=== PATIENT | male | born 1980 | race Caucasian/White ===

== ENCOUNTER 2022-05-19 11:35 | Emergency (ER) | payer OTHER ==
[2022-05-19 13:42] LABS: Glucose,Whole Blood 103 mg/dL (70-110)
[2022-05-19 13:50] VITALS: RESP 18
[2022-05-19 14:27] LABS: Basophils % (A) 1 %; Eosinophils # (A) 0.1 k/uL (0-0.7); Eosinophils % (A) 2 %; HCT 38.4 % (39.0-53.0); HGB 13.3 gm/dL (13.0-17.5); Lymphocytes # (A) 1.1 k/uL (1.0-4.8); Lymphocytes % (A) 18 %; MCH 30.9 pg (25.0-35.0); MCHC 34.7 g/dL (31.0-37.0); MCV 89.2 fL (80.0-100.0); Mean Platelet Volume 9.7; Monocytes # (A) 0.5 k/uL (0-1.0); Monocytes % (A) 9 %; Neutrophils # (A) 4.2 k/uL (1.3-7.7); Neutrophils % (A) 68 %; Platelet Count 111 k/uL (150-450); RDW 13.6 % (11.5-15.5); WBC 6.1 k/uL (3.8-10.6)
--- NOTE | 2022-05-19 14:35 | XR ---
EXAMINATION TYPE: XR chest 2V DATE OF EXAM: 05/19/2022 COMPARISON: INDICATION: TECHNIQUE: Frontal and lateral views of the chest are obtained. FINDINGS: The heart size is normal. The pulmonary vasculature is normal. The lungs are clear. Some hyperinflation flattening the diaphragms could suggest underlying COPD. Foreign body of the kidneys in the midline. IMPRESSION: 1. No acute pulmonary process. 2. COPD
[2022-05-19 14:39] LABS: ALT 47 U/L (4-49); AST 68 U/L (17-59); African American GFR (CKD) >90 (>60 ml/min/1.73 sqM); Alkaline Phosphatase 110 U/L (38-126); Anion Gap 7 mmol/L; Blood Urea Nitrogen 17 mg/dL (9-20); Calcium 9.1 mg/dL (8.4-10.2); Carbon Dioxide 28 mmol/L (22-30); Chloride 106 mmol/L (98-107); Glucose 82 mg/dL (74-99); Non-African American GFR(CKD) >90 (>60 ml/min/1.73 sqM); Potassium 4.1 mmol/L (3.5-5.1); Sodium 141 mmol/L (137-145); Total Bilirubin 0.8 mg/dL (0.2-1.3); Total Protein 7.1 g/dL (6.3-8.2)
--- NOTE | 2022-05-19 14:39 | ED ---
SOB HPI - General Chief Complaint: Shortness of Breath Stated Complaint: SOB Time Seen by Provider: 05/19/22 13:38 Source: patient, RN notes reviewed Mode of arrival: ambulatory Limitations: no limitations - History of Present Illness Initial Comments: 41-year-old male presents with complaints of 4 days of exertional dyspnea and orthopnea he states he feels like there is some pressure on the right side of his lung. He does have a history of alcoholism history of liver disease history of chronic peripheral edema he denies any fevers chills sweats perhaps a slight cough no phlegm production he denies any overt chest pain at this time. He does state he was diagnosed with lymphadenopathy in the past. This was in his chest area. He does admit to smoking. He does use an inhaler when necessary. No other current complaints or modifying factors MD Complaint: shortness of breath - Related Data Home Medications Medication Instructions Recorded Confirmed Acetaminophen [Tylenol 8 Hour] 650 mg PO Q4H PRN 05/19/22 05/19/22 Albuterol Nebulized [Ventolin 2.5 mg INHALATION RT-Q4H PRN 05/19/22 05/19/22 Nebulized] Albuterol Sulfate [Albuterol 1 - 2 puff INHALATION RT-Q4H PRN 05/19/22 05/19/22 Sulfate Hfa] Amoxic-Pot Clav 875-125Mg 1 tab PO BID 05/19/22 05/19/22 [Augmentin 875-125] Calcium Carb/Mag Ox/Zinc Sulf 1 tab PO TID PRN 05/19/22 05/19/22 [Atm-Clu-Zacp 334-134-5 mg Tab] Chlorpheniramine Maleate 4 mg PO Q4H PRN 05/19/22 05/19/22 [Chlor-Trimeton] Docusate [Colace] 100 mg PO BID PRN 05/19/22 05/19/22 Doxycycline [Vibramycin] 100 mg PO BID 05/19/22 05/19/22 Furosemide [Lasix] 40 mg PO BID 05/19/22 05/19/22 Hyoscyamine Sulfate [Levsin] 0.125 mg PO QID PRN 05/19/22 05/19/22 Ibuprofen [Motrin Ib] 600 mg PO Q6H PRN 05/19/22 05/19/22 Insulin Glargine [Lantus Vial] 100 unit SQ DAILY 05/19/22 05/19/22 Insulin Regular, Human [Novolin R] See Protocol SQ ACHS 05/19/22 05/19/22 Lisinopril-Hctz 20-25 mg 1 tab PO DAILY 05/19/22 05/19/22 [Zestoretic 20-25] Loperamide HCl [Imodium A-D] 4 mg PO QID PRN MDD 8 TABLETS 05/19/22 05/19/22 Magnesium Hydroxide [Milk of 2,400 mg PO BID PRN 05/19/22 05/19/22 Magnesia] Multivitamins, Thera [Multivitamin 1 tab PO DAILY 05/19/22 05/19/22 (formulary)] Mylanta 30 ml PO Q4H PRN 05/19/22 05/19/22 Potassium Chloride ER [K-Dur 10] 10 meq PO BID 05/19/22 05/19/22 Thiamine [Vitamin B-1] 100 mg PO DAILY 05/19/22 05/19/22 guaiFENesin [guaiFENesin Oral 200 mg PO Q4HR PRN 05/19/22 05/19/22 Solution] metFORMIN HCL 1,000 mg PO BID 05/19/22 05/19/22 ondansetron HCL [Zofran] 8 mg PO Q6H PRN 05/19/22 05/19/22 traZODone HCL [Desyrel] 50 - 150 mg PO HS PRN 05/19/22 05/19/22 Previous Rx's Medication Instructions Recorded Ipratropium/Albuter 20-100Mcg 1 puff INHALATION QID PRN #1 gm 05/19/22 [Combivent Respimat 20-100Mcg Inhaler] methylPREDNISolone Dose Pack 4 mg PO DIRECTED #21 tab 05/19/22 [Medrol Dose Pack] Allergies Allergy/AdvReac Type Severity Reaction Status Date / Time No Known Allergies Allergy Verified 05/19/22 11:56 Review of Systems ROS Statement: Those systems with pertinent positive or pertinent negative responses have been documented in the HPI. ROS Other: All systems not noted in ROS Statement are negative. Past Medical History Past Medical History: Diabetes Mellitus, Hypertension, Liver Disease History of Any Multi-Drug Resistant Organisms: None Reported Past Surgical History: No Surgical Hx Reported Past Psychological History: PTSD Smoking Status: Current every day smoker Past Alcohol Use History: Abuse Past Drug Use History: Heroin, IV Drug Use General Exam - General Exam Comments Initial Comments: This is a well-developed well-nourished awake alert oriented 4 male Limitations: no limitations General appearance: alert, in no apparent distress Head exam: Present: atraumatic, normocephalic, normal inspection Eye exam: Present: normal appearance, PERRL, EOMI. Absent: scleral icterus, conjunctival injection, periorbital swelling ENT exam: Present: normal exam, mucous membranes moist Neck exam: Present: normal inspection, full ROM, other (No stridor JVD or bruits). Absent: tenderness, meningismus, lymphadenopathy Respiratory exam: Present: decreased breath sounds. Absent: respiratory distress, wheezes, rales, rhonchi, stridor Cardiovascular Exam: Present: regular rate, normal rhythm, normal heart sounds. Absent: systolic murmur, diastolic murmur, rubs, gallop, clicks GI/Abdominal exam: Present: soft, normal bowel sounds, other (Obese abdomen). Absent: distended, tenderness, guarding, rebound, rigid Extremities exam: Present: full ROM, normal capillary refill, pedal edema, other (Stasis dermatitis tenderness palpation no palpable cords.). Absent: ten derness, joint swelling, calf tenderness Back exam: Present: normal inspection Neurological exam: Present: alert, oriented X3, CN II-XII intact Psychiatric exam: Present: normal affect, normal mood Skin exam: Present: warm, dry, intact, normal color. Absent: rash Course Vital Signs 05/19/22 05/19/22 05/19/22 11:51 13:48 15:31 Temperature 98.2 F 97.8 F Pulse Rate 81 66 Respiratory 20 18 18 Rate Blood Pressure 140/75 148/95 O2 Sat by Pulse 98 98 Oximetry 05/19/22 05/19/22 17:13 17:23 Temperature Pulse Rate 68 66 Respiratory Rate Blood Pressure O2 Sat by Pulse Oximetry Procedures - Smoking Cessation Time Spent Discussing Smoking Cessation w/Patient (Minutes): 4 Patient Acknowledges Need for Cessation: Yes Medical Decision Making - Medical Decision Making Patient present with complaints of shortness of breath exertional dyspnea he is feeling improved after treatment. Increased lung sounds. He does have mediastinal lymphadenopathy and imaging which he has been aware of in the past he is currently in treatment and will be getting out on he will follow-up with his doctors and [facility] but he will be given a referral to our pulmonary medicine group if needed. He'll be placed on Medrol Dosepak as well as a Combivent inhaler. We did discuss smoking cessation. - Lab Data Result diagrams: 05/19/22 14:19 05/19/22 14:19 Lab Results 05/19/22 05/19/22 05/19/22 Range/Units 13:40 14:19 14:19 WBC 6.1 (3.8-10.6) k/uL RBC 4.30 (4.30-5.90) m/uL Hgb 13.3 (13.0-17.5) gm/dL Hct 38.4 L (39.0-53.0) % MCV 89.2 (80.0-100.0) fL MCH 30.9 (25.0-35.0) pg MCHC 34.7 (31.0-37.0) g/dL RDW 13.6 (11.5-15.5) % Plt Count 111 L (150-450) k/uL MPV 9.7 Neutrophils % 68 % Lymphocytes % 18 % Monocytes % 9 % Eosinophils % 2 % Basophils % 1 % Neutrophils # 4.2 (1.3-7.7) k/uL Lymphocytes # 1.1 (1.0-4.8) k/uL Monocytes # 0.5 (0-1.0) k/uL Eosinophils # 0.1 (0-0.7) k/uL Basophils # 0.0 (0-0.2) k/uL PT 12.3 H (9.0-12.0) sec INR 1.2 H (<1.2) APTT 26.8 (22.0-30.0) sec D-Dimer (<0.60) mg/L FEU Sodium (137-145) mmol/L Potassium (3.5-5.1) mmol/L Chloride (98-107) mmol/L Carbon Dioxide (22-30) mmol/L Anion Gap mmol/L BUN (9-20) mg/dL Creatinine (0.66-1.25) mg/dL Est GFR (CKD-EPI)AfAm (>60 ml/min/1.73 sqM) Est GFR (CKD-EPI)NonAf (>60 ml/min/1.73 sqM) Glucose (74-99) mg/dL POC Glucose (mg/dL) 103 (70-110) mg/dL POC Glu [employer] Safety Engineer ID [place] Calcium (8.4-10.2) mg/dL Total Bilirubin (0.2-1.3) mg/dL AST (17-59) U/L ALT (4-49) U/L Alkaline Phosphatase (38-126) U/L Troponin I (0.000-0.034) ng/mL NT-Pro-B Natriuret Pep pg/mL Total Protein (6.3-8.2) g/dL Albumin (3.5-5.0) g/dL 05/19/22 05/19/22 05/19/22 Range/Units 14:19 14:19 14:19 WBC (3.8-10.6) k/uL RBC (4.30-5.90) m/uL Hgb (13.0-17.5) gm/dL Hct (39.0-53.0) % MCV (80.0-100.0) fL MCH (25.0-35.0) pg MCHC (31.0-37.0) g/dL RDW (11.5-15.5) % Plt Count (150-450) k/uL MPV Neutrophils % % Lymphocytes % % Monocytes % % Eosinophils % % Basophils % % Neutrophils # (1.3-7.7) k/uL Lymphocytes # (1.0-4.8) k/uL Monocytes # (0-1.0) k/uL Eosinophils # (0-0.7) k/uL Basophils # (0-0.2) k/uL PT (9.0-12.0) sec INR (<1.2) APTT (22.0-30.0) sec D-Dimer (<0.60) mg/L FEU Sodium 141 (137-145) mmol/L Potassium 4.1 (3.5-5.1) mmol/L Chloride 106 (98-107) mmol/L Carbon Dioxide 28 (22-30) mmol/L Anion Gap 7 mmol/L BUN 17 (9-20) mg/dL Creatinine 0.62 L (0.66-1.25) mg/dL Est GFR (CKD-EPI)AfAm >90 (>60 ml/min/1.73 sqM) Est GFR (CKD-EPI)NonAf >90 (>60 ml/min/1.73 sqM) Glucose 82 (74-99) mg/dL POC Glucose (mg/dL) (70-110) mg/dL POC Glu Mine Safety Engineer ID Calcium 9.1 (8.4-10.2) mg/dL Total Bilirubin 0.8 (0.2-1.3) mg/dL AST 68 H (17-59) U/L ALT 47 (4-49) U/L Alkaline Phosphatase 110 (38-126) U/L Troponin I <0.012 (0.000-0.034) ng/mL NT-Pro-B Natriuret Pep 510 pg/mL Total Protein 7.1 (6.3-8.2) g/dL Albumin 4.0 (3.5-5.0) g/dL 05/19/22 Range/Units 15:57 WBC (3.8-10.6) k/uL RBC (4.30-5.90) m/uL Hgb (13.0-17.5) gm/dL Hct (39.0-53.0) % MCV (80.0-100.0) fL MCH (25.0-35.0) pg MCHC (31.0-37.0) g/dL RDW (11.5-15.5) % Plt Count (150-450) k/uL MPV Neutrophils % % Lymphocytes % % Monocytes % % Eosinophils % % Basophils % % Neutrophils # (1.3-7.7) k/uL Lymphocytes # (1.0-4.8) k/uL Monocytes # (0-1.0) k/uL Eosinophils # (0-0.7) k/uL Basophils # (0-0.2) k/uL PT (9.0-12.0) sec INR (<1.2) APTT (22.0-30.0) sec D-Dimer 0.61 H (<0.60) mg/L FEU Sodium (137-145) mmol/L Potassium (3.5-5.1) mmol/L Chloride (98-107) mmol/L Carbon Dioxide (22-30) mmol/L Anion Gap mmol/L BUN (9-20) mg/dL Creatinine (0.66-1.25) mg/dL Est GFR (CKD-EPI)AfAm (>60 ml/min/1.73 sqM) Est GFR (CKD-EPI)NonAf (>60 ml/min/1.73 sqM) Glucose (74-99) mg/dL POC Glucose (mg/dL) (70-110) mg/dL POC Glu Mine Safety Engineer ID Calcium (8.4-10.2) mg/dL Total Bilirubin (0.2-1.3) mg/dL AST (17-59) U/L ALT (4-49) U/L Alkaline Phosphatase (38-126) U/L Troponin I (0.000-0.034) ng/mL NT-Pro-B Natriuret Pep pg/mL Total Protein (6.3-8.2) g/dL Albumin (3.5-5.0) g/dL - EKG Data -: EKG Interpreted by Me EKG Comments: EKG interpreted by me shows a sinus rhythm a 62. Interval 136 QRS duration 114 QT since QTC 4:30/436 evidence of moderate interventricular conduction delay no acute ST-T wave changes - Radiology Data Interpreted by me: I did evaluate the imaging no evidence of acute pulmonary embolus or acute processes there is evidence of mediastinal lymphadenopathy. This is known by the patient from a previous scan done at the before [place]. Disposition Clinical Impression: Acute exacerbation of chronic obstructive pulmonary disease, Smoking, Bronchospasm Disposition: HOME SELF-CARE Condition: Good Instructions (If sedation given, give patient instructions): Bronchospasm (ED) Prescriptions: Ipratropium/Albuter 20-100Mcg [Combivent Respimat 20-100Mcg Inhaler] 1 puff INHALATION QID PRN #1 gm PRN Reason: Dyspnea methylPREDNISolone Dose Pack [Medrol Dose Pack] 4 mg PO DIRECTED #21 tab Is patient prescribed a controlled substance at d/c from ED?: No Referrals: Nonstaff,Physician [Primary Care Provider] - 1-2 days Decision Date: 05/19/22 Decision Time: 17:45
[2022-05-19 14:45] LABS: INR 1.2 (<1.2); Partial Thromboplastin Time 26.8 sec (22.0-30.0); Prothrombin Time 12.3 sec (9.0-12.0)
[2022-05-19] MEDS ORDERED: IPRATROPIUM-ALBUTEROL 3 ML NEB INHALATION STA (16:43)
--- NOTE | 2022-05-19 17:14 | CT ---
CT CHEST FOR PULMONARY EMBOLISM. EXAMINATION TYPE: CT angio chest DATE OF EXAM: 05/19/2022 INDICATION: DAMARIS and elevated d-dimer. CT DLP: 1150.1 mGycm, Automated exposure control for dose reduction was used. CONTRAST: Patient injected with 100ml mL of Isovue 370. COMPARISON: None TECHNIQUE: CT of the chest is performed on a spiral scan at 2 mm thick sections. Study is performed with intravenous contrast timed for evaluation for pulmonary embolism. This will limit additional po rtions of the evaluation. 3-D MIP images reconstructed by the technologist are reviewed on the compu ter in the coronal and sagittal planes. FINDINGS: No persistent filling defects are evident to suggest an acute pulmonary embolism. Enlarged superior mediastinal lymph nodes are present. Adjacent to the aortic arch the largest measur es 2.2 cm with additional enlarged lymphadenopathy present. In the pretracheal space there is a 2.5 c m lymph node. There is a 2.2 cm subcarinal lymph node The ascending aorta diameter at the level of t he main pulmonary artery is 3.4 cm. The main pulmonary artery diameter at the bifurcation is 3.6 cm. Correlate for pulmonary hypertension Small right pleural effusion is present. Minimal left pleural effusion is present. Some streak opacit ies in the posterior right lung base. Correlate for atelectasis. Follow-up is recommended. Underlying mass is not entirely excluded Limited CT section through the upper abdomen are unremarkable. IMPRESSIONS: 1. No acute pulmonary embolism. 2. Enlarged mediastinal adenopathy. Additional workup for metastasis and lymphoma is recommended.
[2022-05-19 18:07] VITALS: BP 152/90; PULSE 74; TEMP 98.3
== END 2022-05-19 18:34 | disposition home or self-care (01) ==
LOC: EC 11:35
DX: J44.1 Chronic obstructive pulmonary disease with (acute) exacerbation (principal); J98.01 Acute bronchospasm; E11.9 Type 2 diabetes mellitus without complications; I10 Essential (primary) hypertension; F17.200 Nicotine dependence, unspecified, uncomplicated; Z79.84 Long term (current) use of oral hypoglycemic drugs; Z79.4 Long term (current) use of insulin
CPT/HCPCS: 36415; 94640; 93005; 85379; 83880; 80053; 84484; 85025; 85610; 85730; 71046; 71275; 99285; Q9967